=== PATIENT | female | born 1995 | race Caucasian/White ===

== ENCOUNTER → 2016-06-22 | Outpatient (CLI) | payer BC ==
--- NOTE | 2016-06-22 14:27 | MAMMOGRAPHY REPORT ---
ULTRASOUND OF BOTH BREASTS: 06/22/2016 CLINICAL HISTORY: 20-year-old woman who presents with approximately 5 weeks of waxing and waning ignacio n in the upper outer quadrant of the right breast near the axillary tail and also questionable lump in that area. Symptoms to a lesser degree in the left upper outer quadrant. No skin changes or nip ple discharge. No family history of breast cancer. COMPARISON: No prior exams were available for comparison. FINDINGS: Real-time high-resolution ultrasound was performed in the areas of pain in each upper out er quadrant pointed out by the patient. In the area of/tenderness in the right 10:30 breast approxi mately 8-10 cm from the nipple, there is normal dense fiber glandular tissue without evidence of a d iscrete solid or cystic mass. Incidental note is made of a morphologically normal lymph node in the right axilla measuring 14 mm in length with a thin cortex measuring 1.8 mm. In the left 1:00 breas t, 15 cm from the nipple, in the area of concern pointed out by the patient, normal fibroglandular t issue is seen without a discrete solid or cystic mass. IMPRESSION: ACR BI-RADS CATEGORY 2: BENIGN There is no sonographic evidence of malignancy or other suspicious abnormality to explain the interm ittent mastalgia in the right greater than left upper outer quadrant. Therefore, clinical follow-up is recommended as biopsy of a clinically suspicious mass should not be precluded by negative imagin g. These results and recommendations were discussed with the patient at the time of the exam. Tracee Kaufman M.D. ay/:06/22/2016 11:57:30 Tape Controlled Machine Stitcher: Makenna ZARATE)(Rachael), [facility] letter sent: Normal 1/2 BI-RADS Code: ACR BI-RADS Category 2: Benign
== END | disposition home or self-care (01) ==
LOC: C.MAMM 11:02
PROVIDERS: ATTEND Physician Assistant
DX: N63 Unspecified lump in breast (principal)

== ENCOUNTER → 2017-04-13 | Outpatient (CLI) | payer BC | END | disposition home or self-care (01) | LOC: C.LABSPEC 16:21 | PROVIDERS: ATTEND Physician Assistant | DX: Z01.419 Encounter for gynecological examination (general) (routine) without abnormal findings (principal) ==